=== PATIENT | male | born 1955 | race Caucasian/White ===

== ENCOUNTER 2017-04-01 06:06 | Day surgery (SDC) | payer BC, OTHER ==
[~2017-04-01] VITALS: Ht 170.2 cm; Wt 82.2 kg
[2017-04-01 06:58] VITALS: Ht 170.2 cm; Wt 82.2 kg
[2017-04-01] MEDS ORDERED: BP MED (07:47)
[2017-04-01] MEDS ORDERED: METFORMIN (07:47)
--- NOTE | 2017-04-01 08:29 | OPPN ---
Date/Time of Note Date/Time of Note DATE: 04/01/17 TIME: 08:28 Operative Report Preoperative Diagnosis Screening Postoperative Diagnosis Sigmoid colon polyp was removed Occasional diverticulosis of the colon Internal hemorrhoids Operation/Procedure Performed Colonoscopy and biopsy Surgeon see signature line licensed sales assistant None Anesthesia: moderate sedation Estimated blood loss: none Transfusion Required none Specimen Sigmoid polyp biopsy Grafts/Implants none Complications none LUIS ARMANDO BISHOP MD Apr 01, 2017 08:29
[2017-04-01] MEDS ORDERED: FENTAnyl 50 MCG/ML VIAL ONE (08:33)
[2017-04-01] MEDS ORDERED: MIDAZOLAM 1 MG/ML 2 ML INJ ONE (08:34)
[2017-04-01 08:52] VITALS: BP 122/84; RESP 14
--- NOTE | 2017-04-01 10:21 | GILP ---
DATE OF PROCEDURE: NAME OF PROCEDURES: Colonoscopy and biopsy. SURGEON: Luis Armando Coe MD PREOPERATIVE DIAGNOSIS: Screening colonoscopy. POSTOPERATIVE DIAGNOSES 1. Colonoscopy all the way to the cecum. 2. Small sigmoid colon polyp was removed with biopsy forceps. 3. Occasional diverticulosis of the colon. 4. Internal hemorrhoids. INDICATION FOR THE PROCEDURE: Mr. Marcus Glass is a 62-year-old male patient who was scheduled for screening colonoscopy. The procedure and possible complications were well explained to the patient. The patient understood and consented to the procedure. DESCRIPTION OF PROCEDURE: Under the influence of fentanyl and Versed, the colonoscope was carefully introduced in the rectum and under direct vision it was advanced all the way to the cecum. FINDINGS: The patient had a small sigmoid colon polyp and it was removed using biopsy forceps. He was noted to have occasional diverticulosis of the colon. He also had internal hemorrhoids. He tolerated the procedure very well and there were no complication from the procedure. At the end of the procedure, he was awake with stable vital signs and he was discharged home to the care of his family. IMPRESSION: Please see postoperative diagnoses. PLAN: Next screening colonoscopy in 10 years. Dictated By: LUIS ARMANDO MORELAND/JENI Conf#: [id number] DID#: [id number]
== END 2017-04-01 11:38 | disposition home or self-care (01) ==
LOC: GIL 06:06
PROVIDERS: ATTEND Internal Medicine Gastroenterology
DX: Z12.11 Encounter for screening for malignant neoplasm of colon (principal); D12.5 Benign neoplasm of sigmoid colon; K57.90 Diverticulosis of intestine, part unspecified, without perforation or abscess without bleeding; K64.8 Other hemorrhoids; E11.9 Type 2 diabetes mellitus without complications; I10 Essential (primary) hypertension
CPT/HCPCS: 45380; 82962; 88305; J2250; J3010